=== PATIENT | female | born 1985 | race African-American/Black ===

== ENCOUNTER 2020-08-03 11:11 | Emergency (ER) | payer OTHER ==
[2020-08-03] MEDS ORDERED: Acetaminophen 325 MG TAB ONE (11:52)
== END 2020-08-03 11:55 | disposition home or self-care (01) ==
LOC: CSHERS 11:11
DX: M62.830 Muscle spasm of back (principal); F17.210 Nicotine dependence, cigarettes, uncomplicated; X50.0XXA Overexertion from strenuous movement or load, initial encounter; Y99.0 Civilian activity done for income or pay
CPT/HCPCS: 99283

== ENCOUNTER 2020-10-29 11:28 | Outpatient (CLI) | payer OTHER | END 2020-10-29 11:29 | disposition home or self-care (01) | LOC: CSHLAB 11:28 | PROVIDERS: ATTEND Obstetrics & Gynecology | DX: Z01.812 Encounter for preprocedural laboratory examination (principal); Z20.822 Contact with and (suspected) exposure to COVID-19; N84.0 Polyp of corpus uteri; N93.9 Abnormal uterine and vaginal bleeding, unspecified | CPT/HCPCS: 84703; 85027; 86850; 86900; 86901; U0003; U0005 ==

== ENCOUNTER 2023-02-22 12:26 | Emergency (ER) | payer OTHER ==
[2023-02-22] MEDS ORDERED: Cyclobenzaprine 10 MG TAB ONE (13:17)
[2023-02-22] MEDS ORDERED: Ibuprofen 200 MG TAB ONE (13:18)
== END 2023-02-22 14:54 | disposition home or self-care (01) ==
LOC: CSHERS 12:26
DX: S80.02XA Contusion of left knee, initial encounter (principal); M79.605 Pain in left leg; J45.909 Unspecified asthma, uncomplicated; I10 Essential (primary) hypertension; F17.210 Nicotine dependence, cigarettes, uncomplicated; V89.2XXA Person injured in unspecified motor-vehicle accident, traffic, initial encounter